=== PATIENT | female | born 1965 | race Caucasian/White ===

== ENCOUNTER → 2016-08-17 | Outpatient (CLI) | payer OTHER ==
--- NOTE | ~2016-08-17 | MY11 ---
[facility] A Service of [facility] RADIOLOGY TEXT RESULTS PATIENT: EUGENIO SOARES LOCATION: [facility] : 67 UNIT #: [id number] AGE: [address]: SVETLANA PINEDO SEX: F ORDER DR: [id number] [facility] [address] [place], [place] [address] [id number] O MR#: [id number] Acc #: [id number] NAME: EUGENIO SOARES : 1965 SEX: F STUDY DATE/TIME: 08/17/2016 12:01 UNIT: [facility] ROOM: STUDY DESCRIPTION: MY Mammogram Screening Dig Anirudh Attending Physician: Svetlana iPnedo M.D. Referring Physician: Svetlana Pinedo M.D. Ordering Physician: Physician Non-Staff Primary Care Physician: Svetlana Pinedo M.D. MEDICAL IMAGING REPORT This report is preliminary unless electronic signature is present EXAM Digital screening mammogram, 08/17/2016, [facility]. HISTORY 51-year-old woman baseline mammogram. No risk elevation. COMPARISON None. TECHNIQUE Digital imaging of each breast was completed utilizing screening protocol. Review includes FDA-approved CAD device. FINDINGS Breast parenchyma is fatty replaced. I see no breast mass. There are no suspicious microcalcifications and no architectural deformity. IMPRESSION Negative baseline mammogram. Annual screening recommended. Patients over the age of 40 are entered into a reminder system with target due date for the next mammogram. A result letter will also be sent to the patient. BIRADS: 1 Negative Dictated by... Abelardo Guillaume M.D. THIS IS AN ELECTRONICALLY VERIFIED REPORT Abelardo Guillaume M.D. at 08/17/2016 2:43 PM [facility] A Service [facility] RADIOLOGY TEXT RESULTS PATIENT: EUGENIO SOARES LOCATION: [facility] : 67 UNIT #: [id number] AGE: [address]: SVETLANA PINEDO SEX: F ORDER DR: AMOL/juany TD: 08/17/2016 14:32 JOB #: [id number] MEDICAL IMAGING REPORT COPY
== END | disposition home or self-care (01) ==
LOC: CWCC 11:42
DX: Z12.31 Encounter for screening mammogram for malignant neoplasm of breast (principal)
CPT/HCPCS: G0202

== ENCOUNTER 2016-10-30 15:45 | Emergency (ER) | payer OTHER ==
--- NOTE | ~2016-10-30 | US85 ---
[facility] A Service of [facility] RADIOLOGY TEXT RESULTS PATIENT: EUGENIO SOARES LOCATION: [facility] : 67 UNIT #: [id number] AGE: [address]: AIDAN CÁRDENAS SEX: F ORDER DR: [id number] [facility] [address] [place], [place] [address] [id number] E MR#: [id number] Acc #: [id number] NAME: EUGENIO SOARES : 1965 SEX: F STUDY DATE/TIME: 10/30/2016 18:54 UNIT: [facility] ROOM: STUDY DESCRIPTION: [facility] Attending Physician: Aidan Cárdenas Aprn Ordering Physician: Aidan Cárdenas Aprn Primary Care Physician: Svetlana Benito M.D. MEDICAL IMAGING REPORT This report is preliminary unless electronic signature is present EXAM Left lower extreme Doppler venous ultrasound. Date 10/30/2016 HISTORY Leg pain for 1 day. COMPARISON None. TECHNIQUE Venous ultrasound examination of the left lower extremity was performed using grayscale, spectral Doppler and color flow Doppler imaging. FINDINGS The examination is negative. There is no evidence of left lower extremity deep venous thrombus from the groin to the lower calf. Visualized greater saphenous vein is also patent. IMPRESSION Negative examination. No evidence of left lower extremity deep venous thrombosis. Dictated by... Tiffanie Jackman M.D. THIS IS AN ELECTRONICALLY VERIFIED REPORT Tiffanie Jackman M.D. at 11/03/2016 8:41 AM VERONICA/starr [facility] A Service of [facility] RADIOLOGY TEXT RESULTS PATIENT: EUGENIO SOARES LOCATION: [facility] : 67 UNIT #: [id number] AGE: [address]: AIDAN CÁRDENAS SEX: F ORDER DR: TD: 10/31/2016 00:55 JOB #: [id number] MEDICAL IMAGING REPORT Page 1 of 1 COPY
== END 2016-10-30 19:35 | disposition home or self-care (01) ==
LOC: CED 15:45 → CFTX 15:45
DX: S83.412A Sprain of medial collateral ligament of left knee, initial encounter (principal); J45.909 Unspecified asthma, uncomplicated; S86.912A Strain of unspecified muscle(s) and tendon(s) at lower leg level, left leg, initial encounter; G40.909 Epilepsy, unspecified, not intractable, without status epilepticus; Z88.0 Allergy status to penicillin; Z88.1 Allergy status to other antibiotic agents; Z91.041 Radiographic dye allergy status; X58.XXXA Exposure to other specified factors, initial encounter; Y92.9 Unspecified place or not applicable; M79.89 Other specified soft tissue disorders
CPT/HCPCS: 29530; 93971; 99284

== ENCOUNTER 2016-12-19 17:35 | Emergency (ER) | payer OTHER ==
[~2016-12-19] VITALS: Ht 167.6 cm; Wt 127.0 kg
--- NOTE | ~2016-12-19 | CR63 ---
[facility] A Service of [facility] & [facility] RADIOLOGY TEXT RESULTS PATIENT: EUGENIO SOARES LOCATION: [facility] : 67 UNIT #: [id number] AGE: [address]: Endy Leggett MD SEX: F ORDER DR: [id number] [facility] [address] [place], [place] [address] [id number] E MR#: [id number] Acc #: [id number] NAME: EUGENIO SOARES : 1965 SEX: F STUDY DATE/TIME: 12/19/2016 18:42 UNIT: [facility] ROOM: STUDY DESCRIPTION: CR Chest 2 View Attending Physician: Endy Leggett Ordering Physician: Ed Doctor [id number] [facility] Primary Care Physician: Svetlana Benito M.D. MEDICAL IMAGING REPORT This report is preliminary unless electronic signature is present EXAM PA and lateral chest HISTORY Cough and shortness of air today. FINDINGS The cardiac size and pulmonary vascularity are normal. No infiltrates or effusions. Moderate hypertrophic changes mid and lower thoracic spine and upper lumbar spine. IMPRESSION No acute findings Dictated by... Kingston Andrews M.D. THIS IS AN ELECTRONICALLY VERIFIED REPORT Kingston Andrews M.D. at 12/20/2016 6:07 PM ROBIN/starr TD: 12/20/2016 00:00 JOB #: [id number] MEDICAL IMAGING REPORT Page 1 of 1 COPY
== END 2016-12-19 21:20 | disposition home or self-care (01) ==
LOC: CED 17:35
DX: J45.901 Unspecified asthma with (acute) exacerbation (principal); Z88.0 Allergy status to penicillin; Z88.1 Allergy status to other antibiotic agents; Z91.041 Radiographic dye allergy status
CPT/HCPCS: 71020; 94640; 99285